=== PATIENT | female | born 1990 | race Caucasian/White ===

== ENCOUNTER 2020-11-20 16:38 | Outpatient (RCR) | payer OTHER, SELFPAY ==
[2020-11-20] MEDS: RHO(D) IMMUNE GLOBULIN 300 MCG/2 ML SYRINGE IM (19:20)
== END 2021-02-18 23:59 | disposition home or self-care (01) ==
LOC: ANHLAB 16:38
PROVIDERS: PCP Internal Medicine; Visit Provider Obstetrics & Gynecology Gynecology
DX: Z29.13 Encounter for prophylactic Rho(D) immune globulin (principal); O36.0190 Maternal care for anti-D [Rh] antibodies, unspecified trimester, not applicable or unspecified; O03.9 Complete or unspecified spontaneous abortion without complication; Z3A.00 Weeks of gestation of pregnancy not specified
CPT/HCPCS: 36415; 85461; 90384; 96372; J2790